=== PATIENT | male | born 1950 | race Caucasian/White ===

== ENCOUNTER 2018-06-21 14:24 | Emergency (ER) | payer BC, MEDICARE ==
[2018-06-21 15:18] VITALS: BP 158/93
[2018-06-21] MEDS ORDERED: Fluorescein Sodium TOPICAL* 1 MG TEST STRIP OPHTHALMIC ONE (15:42)
--- NOTE | 2018-06-21 15:59 | UC ---
Eye Complaint HPI - HPI Summary HPI Summary: I is a 67-year-old male that had the onset of left eye discomfort /irritation and he put his contact lenses in this morning. He immediately took his contact lenses off and flushed his left eye. He then put his contact lens and again. It did not start bothering him until about noon today. Then his eye started tearing a lot and he felt like he had a foreign body under his left upper eyelid (temporal aspect). He removed his contact lenses and his pain markedly lessened. He currently has 2 out of 10 left eye pain. He denies any tearing currently. He denies any photophobia. He denies any purulent discharge. - History of Current Complaint Chief Complaint: UCEye Stated Complaint: FB IN EYE Time Seen by Provider: 06/21/18 15:40 Hx Obtained From: Patient Onset/Duration: Sudden Onset, Lasting Hours Timing: Constant Severity Initially: Mild Severity Currently: Mild Pain Intensity: 2 Pain Scale Used: 0-10 Numeric Location of Injury: Conjunctiva Character: Foreign Body Sensation Aggravating Factor(s): Nothing Alleviating Factor(s): Other - removing contact lens - Risk Factors Penetrating Injury Risk Factor: Negative Globe Rupture Risk Factors: Negative Acute Glaucoma Risk Factors: Negative Optic Artery Occlusion Risk Factors: Negative - Allergies/Home Medications Allergies/Adverse Reactions: Allergies Allergy/AdvReac Type Severity Reaction Status Date / Time No Known Allergies Allergy Verified 06/21/18 15:18 PMH/Surg Hx/FS Hx/Imm Hx Previously Healthy: Yes - Surgical History Surgical History: None - Family History Known Family History: Positive: Hypertension, Diabetes - Social History Alcohol Use: Weekly Substance Use Type: None Smoking Status (MU): Former Smoker - Immunization History Most Recent Tetanus Shot: UTD Review of Systems All Other Systems Reviewed And Are Negative: Yes Constitutional: Positive: Negative Skin: Positive: Negative Eyes: Positive: Blurred Vision, Eye Redness ENT: Positive: Negative Respiratory: Positive: Negative Cardiovascular: Positive: Negative Gastrointestinal: Positive: Negative Genitourinary: Positive: Negative Motor: Positive: Negative Neurovascular: Positive: Negative Musculoskeletal: Positive: Negative Neurological: Positive: Negative Psychological: Positive: Negative Physical Exam Triage Information Reviewed: Yes Appearance: Well-Appearing, No Pain Distress Vital Signs: Initial Vital Signs Temp 98 F 06/21/18 15:13 Pulse 61 06/21/18 15:13 Resp 16 06/21/18 15:13 BP 158/93 06/21/18 15:13 Pulse Ox 100 06/21/18 15:13 Vital Signs Reviewed: Yes Eyes: Positive: Conjunctiva Inflamed, Other: - (+) multiple superfical stain defect with florescein/no FB noted under lid. Negative: Discharge ENT: Positive: Hearing grossly normal. Negative: Nasal congestion, Nasal drainage, Tonsillar swelling, Tonsillar exudate, Muffled voice, Hoarse voice, Sinus tenderness Neck: Positive: Supple, Nontender Respiratory: Positive: Lungs clear, Normal breath sounds, No respiratory distress, No accessory muscle use Cardiovascular: Positive: RRR, No Murmur Musculoskeletal: Positive: ROM Intact, No Edema Neurological: Positive: Alert Psychological Exam: Normal Skin Exam: Normal Eye Complaint Course/Dx - Differential Dx/Diagnosis Provider Diagnosis: Corneal abrasion of left eye due to contact lens Discharge - Sign-Out/Discharge Documenting (check all that apply): Patient Departure All imaging exams completed and their final reports reviewed: No Studies - Discharge Plan Condition: Stable Disposition: HOME Prescriptions: Polymyx/Trimethoprim OPTH* [Polytrim OPHTH*] 1 - 2 drop LEFT EYE QID 3 Days #1 btl Patient Education Materials: Corneal Abrasion (ED) Referrals: Drew De La Vega MD [Primary Care Provider] - Additional Instructions: RETURN FOR RECHECK FOR worsening pain light sensitivity purulent discharge from eye No contact lens use until okayed by Dr. Del Castillo - Emilie Disposition and Condition Condition: STABLE Disposition: Home
== END 2018-06-21 16:00 | disposition home or self-care (01) ==
LOC: UCEAST 14:24
DX: H18.822 Corneal disorder due to contact lens, left eye (principal); Z87.891 Personal history of nicotine dependence
CPT/HCPCS: 99212; A9270-GY; G0463

== ENCOUNTER 2019-01-29 08:44 | Emergency (ER) | payer MEDICARE ==
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
[2019-01-29 09:01] VITALS: BP 149/90
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
== END 2019-01-29 09:45 | disposition home or self-care (01) ==
LOC: UCEAST 08:44
DX: S00.531A Contusion of lip, initial encounter (principal); W50.3XXA Accidental bite by another person, initial encounter; Y92.019 Unspecified place in single-family (private) house as the place of occurrence of the external cause; E78.5 Hyperlipidemia, unspecified; I10 Essential (primary) hypertension; Z87.891 Personal history of nicotine dependence; Z79.82 Long term (current) use of aspirin
CPT/HCPCS: 99212; G0463

== ENCOUNTER 2019-06-23 11:04 | Emergency (ER) | payer MEDICARE ==
--- OUTSIDE RECORDS SUMMARY | 2019-06-23 12:01 | XMS REPORT | Continuity of Care Document ---
:1950 External Reference #:[id number] Author Name Karen Carson O.D. Address [address] [place] [id number] Care Team Providers Name Role Phone Drew De La Vega M.D. - Internal Care Team Information [employer] Medicine Problems Active Problems Provider Date Hypertensive disorder Karen Carson O.D. Onset: 02/02/2019 Nuclear senile cataract Karen Carson O.D. Onset: 02/02/2019 Foreign body in conjunctival sac, right Karen Carson O.D. Onset: 02/02 eye, initial encounter Open angle with borderline findings, high Karen Carson O.D. Onset: risk, bilateral Bilateral primary open angle glaucoma Karen Carson O.D. Onset: 2018 Social History Type Date Description Comments Sex Unknown ETOH Use Occasionally consumes alcohol Tobacco Use Reviewed: 02/02/19 Patient has never smoked Recreational Drug Use Denies Drug Use Smoking Status Reviewed: 04/29/19 Patient has never smoked Allergies, Adverse Reactions, Alerts Description No Known Drug Allergies Medications Active Medications SIG Qnty Indications Ordering Provider Date Latanoprost 1 drop both eyes 10ml H40.1131 Karen Carson, 03/27/2019 0.005% every night O.D. Solution Omeprazole Unknown 40mg Capsules Lisinopril Unknown 20mg Tablets Immunizations Description No Information Available Vital Signs Description No Information Available Results Description No Information Available Procedures Date Code Description Status 03/27/2019 62293 Visual Field Exam Extended Completed 03/27/2019 03007 Gonioscopy Completed 03/27/2019 89225 Est Patient Intermediate Exam Completed 02/20/2019 59865 Scanning Computerized Ophthalmic Diagnostic Imag Posterior Completed Seg On 02/20/2019 32242 Est Patient Intermediate Exam Completed 02/02/2019 79508 New Patient Intermediate Exam Completed Medical Devices Description No Information Available Encounters Description No Information Available Assessments Date Code Description Provider 04/29/2019 H40.1131 Primary open-angle glaucoma, bilateral, Karen Carson O.D. mild stage 04/29/2019 H25.13 Age-related nuclear cataract, bilateral Karen Carson O.D. 03/27/2019 H40.1131 Primary open-angle glaucoma, bilateral, Karen Carson O.D. mild stage 03/27/2019 H25.13 Age-related nuclear cataract, bilateral Karen Carson O.D. 02/20/2019 H40.023 Open angle with borderline findings, Karen Carson O.D. high risk, bilateral 02/20/2019 H25.13 Age-related nuclear cataract, bilateral Karen Carson O.D. 02/02/2019 T15.11xA Foreign body in conjunctival sac, right Karen Carson O.D. eye, initial encounter 02/02/2019 H40.023 Open angle with borderline findings, Karen Carson O.D. high risk, bilateral 02/02/2019 H25.13 Age-related nuclear cataract, bilateral Karen Carson O.D. Plan of Treatment 04/29/2019 - Karen Carson O.D.H40.1131 Primary open-angle glaucoma, bilateral, mild stageComments:Your glaucoma is stable at this time.Your eye pressure is within an acceptable range, and your testing does not show any Glaucoma related changes at this time. Please continue your treatment.Follow up: 3 Month Follow Up/IOP CHECK At your next visit, we are not planning to dilate your eyes. However, if you have any changes in your vision or new symptoms, there are certain situations that require us to dilate your eyes. If Dr. Carson requests any additional testing, that may require extra time. If you have any questions before your next appointment, please call our office at .H25.13 Age-related nuclear cataract, bilateralComments:You have been diagnosed with cataracts. If you are happy with your vision as it is now, then we willsee you at your next scheduled appointment. If you feel like your vision is getting worse before your scheduled appointment, please call Jeannie at [phone]. Functional Status Description No Information Available Mental Status Description No Information Available Referrals Description No Information Available
== END 2019-06-23 12:01 | disposition left against medical advice (07) ==
LOC: UCEAST 11:04
DX: Z53.21 Procedure and treatment not carried out due to patient leaving prior to being seen by health care provider (principal)

== ENCOUNTER 2019-06-24 09:15 | Emergency (ER) | payer MEDICARE ==
[2019-06-24 11:38] VITALS: BP 137/82
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
== END 2019-06-24 12:20 | disposition home or self-care (01) ==
LOC: UCEAST 09:15
DX: J32.9 Chronic sinusitis, unspecified (principal); I10 Essential (primary) hypertension; R05 Cough; Z87.891 Personal history of nicotine dependence
CPT/HCPCS: 99201; G0463